=== PATIENT | male | born 1990 | race African-American/Black ===

== ENCOUNTER 2023-09-08 22:26 | Emergency (ER) | payer OTHER ==
[~2023-09-08] VITALS: Ht 180.3 cm; Wt 72.1 kg
[2023-09-08] MEDS: ACETAMINOPHEN 325 MG TABLET PO ONE (23:00)
[2023-09-08] MEDS ORDERED: ACETAMINOPHEN 325 MG TABLET ONE (23:00)
[2023-09-09 00:40] VITALS: BP 122/68; TEMP 98; O2SAT 98
[2023-09-09] MEDS ORDERED: DIVA500T2 PO (10:22)
[2023-09-09] MEDS ORDERED: LEVE1000 PO (10:22)
== END 2023-09-09 00:50 | disposition home or self-care (01) ==
LOC: ER 22:37
DX: R56.9 Unspecified convulsions (principal)

== ENCOUNTER 2023-09-09 08:40 | Emergency (ER) | payer OTHER ==
[~2023-09-09] VITALS: Ht 180.3 cm; Wt 72.1 kg
[2023-09-09] MEDS ORDERED: DIVALPROEX SODIUM 500 MG TABLET.DR PO ONE ×2 (09:10→09:30)
[2023-09-09] MEDS ORDERED: LEVETIRACETAM (250 MG) 250 MG TABLET PO ONE ×2 (09:11→09:30)
[2023-09-09 09:19] VITALS: TEMP 98.7
[2023-09-09 09:26] LABS: BASOPHILS # (AUTO) 0.1 K/uL (0.0-0.2); BASOPHILS % (AUTO) 0.5 % (0.0-2.0); EOSINOPHILS # (AUTO) 0.1 K/uL (0.0-0.7); EOSINOPHILS % (AUTO) 1.4 % (0.0-6.0); HEMATOCRIT 40 % (39-51); HEMOGLOBIN 12.7 g/dL (13.5-17.5); LYMPHOCYTES # (AUTO) 1.8 K/uL (0.8-4.8); LYMPHOCYTES % (AUTO) 19.1 % (20.0-44.0); MEAN CORPUSCULAR HEMOGLOBIN 25 PG (26.0-33.0); MEAN CORPUSCULAR HGB CONC 32 g/dl (31.0-36.0); MEAN CORPUSCULAR VOLUME 80 fL (80-96); MONOCYTES # (AUTO) 0.7 K/uL (0.1-1.30); MONOCYTES % (AUTO) 7.8 % (2.0-12.0); NEUTROPHILS # (AUTO) 6.7 K/uL (1.8-8.9); NEUTROPHILS % (AUTO) 71.2 % (43.0-81.0); PLATELET COUNT (AUTO) 185 K/uL (150-450); RED BLOOD CELL COUNT(AUTO) 5.04 MIL/uL (4.5-6.0); RED CELL DISTRIBUTION WIDTH 15.8 % (11.5-15.0); WHITE BLOOD COUNT (AUTO) 9.4 K/uL (4.3-11.0)
[2023-09-09 09:36] LABS: CALCIUM, SERUM 9.6 mg/dL (8.5-10.1); CARBON DIOXIDE 25 mmol/L (21-32); CHLORIDE 103 mmol/L (98-107); CREATININE 1.4 mg/dL (0.6-1.3); GLUCOSE 76 mg/dL (74-106); POTASSIUM 4.3 mmol/L (3.5-5.1); SODIUM SERUM 140 mmol/L (136-145); UREA NITROGEN, BLOOD 19 mg/dL (7-18)
[2023-09-09 09:42] LABS: ALANINE AMINOTRANSFERASE 42 U/L (12-78); ALBUMIN 4.1 g/dL (3.4-5.0); ALCOHOL, BLOOD < 3 mg/dL (0-10); ALKALINE PHOSPHATASE 85 U/L (46-116); ASPARTATE AMINOTRANSFERASE 28 U/L (15-37); BILIRUBIN,DIRECT 0.1 mg/dL (0.0-0.2); BILIRUBIN,TOTAL 0.4 mg/dL (0.2-1.0); TOTAL PROTEIN, SERUM 8.3 g/dL (6.4-8.2)
[2023-09-09 09:51] LABS: VALPROIC ACID 20 ug/mL (50-100)
[2023-09-09 10:01] LABS: INR 1.02 (0.91-1.10); PARTIAL THROMBOPLASTIN TIME 25.2 SEC (24.3-34.3); PROTHROMBIN TIME 10.8 SECS (9.2-11.1)
[2023-09-09] MEDS ORDERED: LEVE1000 PO (10:22)
[2023-09-09] MEDS ORDERED: DIVA500T2 PO (10:22)
[2023-09-09 10:28] VITALS: BP 130/77; O2SAT 100
[2023-09-09 10:56] LABS: AMPHETAMINE, URINE NEGATIVE (NEGATIVE); BARBITURATE, URINE NEGATIVE (NEGATIVE); BENZODIAZEPINE, URINE NEGATIVE (NEGATIVE); COCCAINE, URINE NEGATIVE (NEGATIVE); OPIATE, URINE NEGATIVE (NEGATIVE); PHENCYCLIDINE SCREEN,URINE NEGATIVE (NEGATIVE)
[2023-09-09 10:58] LABS: CANNABINOID, URINE POSITIVE (NEGATIVE)
== END 2023-09-09 10:40 | disposition home or self-care (01) ==
LOC: ER 08:44
DX: R56.9 Unspecified convulsions (principal)
CPT/HCPCS: 36415; 80048-TC; 80076-TC; 80164-TC; 82962-TC; 85025-TC; 85730-TC; G0480